=== PATIENT | female | born 1965 | race Caucasian/White ===

== ENCOUNTER 2017-06-20 11:03 | Observation (INO) | payer SELFPAY ==
[~2017-06-20] VITALS: Ht 165.1 cm; Wt 90.0 kg
[2017-06-20 11:26] LABS: HEMOGLOBIN 13.4 G/DL (11.9-15.5); MCH 29.1 PG (29.0-34.0); MCHC 33.5 G/DL (30.0-36.0); PLATELET COUNT 318 K/uL (156-360); RBC DIS.WIDTH-CV 13.5 % (11.8-14.6); RBC DIS.WIDTH-SD 43.2 % (39-53); WHITE BLOOD COUNT 8.6 K/uL (4.1-10.2)
[2017-06-20 11:39] LABS: CHLORIDE 104 mEq/L (99-109); POTASSIUM 3.8 mEq/L (3.7-5.4); SODIUM 142 mEq/L (136-147)
[2017-06-20 11:40] LABS: GLUCOSE 105 mg/dL (70-99)
[2017-06-20 11:44] LABS: CREATININE 0.8 mg/dL (0.6-1.3); GFR ESTIMATE (CALCULATED) > 59 mL/min/
[2017-06-20 11:45] LABS: UREA NITROGEN (BUN) 10 mg/dL (9-23)
[2017-06-20 11:47] LABS: TROP-I INTERPRETATION NEGATIVE; TROPONIN-I < 0.01 ng/mL (0.0-0.30)
[2017-06-20 15:12] LABS: ALBUMIN 4.1 g/dL (3.2-4.8)
[2017-06-20 15:13] LABS: D-DIMER ELISA < 150.00 ng/mLDDU (<230)
[2017-06-20 15:15] LABS: TOTAL PROTEIN 6.6 g/dL (6.4-8.3)
[2017-06-20 15:17] LABS: TOTAL BILIRUBIN 0.5 mg/dL (0.0-1.0)
[2017-06-20 15:18] LABS: ALKALINE PHOSPHATASE 47 IU/L (3-129)
[2017-06-20 15:20] LABS: AST (GOT) 21 IU/L (2-34); DIRECT BILIRUBIN 0.2 mg/dL (0.0-0.3)
[2017-06-20 15:21] LABS: ALT (GPT) 30 IU/L (3-49)
[2017-06-20] MEDS ORDERED: MULTI VITAMIN1 EACH PO (15:25)
[2017-06-20] MEDS ORDERED: LEVOTHYROXINE175 MCG PO (15:25)
[2017-06-20 16:48] LABS: THYROTROPIN (TSH) 2.5 MIU/L (0.4-5.5)
[2017-06-20 18:10] LABS: TROP-I INTERPRETATION NEGATIVE; TROPONIN-I 0.03 ng/mL (0.0-0.30)
[2017-06-20 20:23] VITALS: BP 113/75
[2017-06-21 00:35] VITALS: BP 128/58
[2017-06-21 00:56] LABS: TROP-I INTERPRETATION NEGATIVE; TROPONIN-I < 0.01 ng/mL (0.0-0.30)
[2017-06-21 03:52] VITALS: BP 108/66
[2017-06-21 05:12] LABS: HEMATOCRIT 36.5 % (36.0-46.0); HEMOGLOBIN 11.9 G/DL (11.9-15.5); MCH 28.6 PG (29.0-34.0); MCHC 32.6 G/DL (30.0-36.0); MCV 87.7 FL (83-99); PLATELET COUNT 281 K/uL (156-360); RBC DIS.WIDTH-CV 13.7 % (11.8-14.6); RBC DIS.WIDTH-SD 44.3 % (39-53); RED BLOOD COUNT 4.16 M/uL (3.80-5.20); WHITE BLOOD COUNT 8.9 K/uL (4.1-10.2)
[2017-06-21 06:03] LABS: CHLORIDE 101 MEQ/L (99-109); CREATININE 0.6 MG/DL (0.6-1.3); GFR ESTIMATE (CALCULATED) > 59 mL/min/; GLUCOSE 106 mg/dL (70-99); POTASSIUM 3.7 MEQ/L (3.7-5.4); SODIUM 139 MEQ/L (136-147); UREA NITROGEN (BUN) 9 mg/dL (9-23)
[2017-06-21 08:00] VITALS: BP 135/76
[2017-06-21] MEDS ORDERED: BUTALB-APAP-CA1 EACH PO (11:46)
[2017-06-21] MEDS ORDERED: ALPRAZOLAM0.25 M2 PO (11:46)
[2017-06-21] MEDS ORDERED: ASPIR 8181 M1 PO (11:46)
[2017-06-21] MEDS ORDERED: PEPCID20 MG PO (11:47)
[2017-06-21] MEDS ORDERED: ATORVASTATIN CA40 MG PO (11:54)
[2017-06-21 11:55] VITALS: BP 133/87
== END 2017-06-21 12:53 | disposition home or self-care (01) ==
LOC: EME 11:03 → 5WEST 14:07 → EDOF 14:07 → ENRESERV 14:08 → 5WEST 20:06
PROVIDERS: Nurse Practitioner Adult Health
DX: R07.9 Chest pain, unspecified (principal); R94.31 Abnormal electrocardiogram [ECG] [EKG]; I10 Essential (primary) hypertension; F41.9 Anxiety disorder, unspecified; G43.909 Migraine, unspecified, not intractable, without status migrainosus; E78.5 Hyperlipidemia, unspecified; Z82.49 Family history of ischemic heart disease and other diseases of the circulatory system; E03.9 Hypothyroidism, unspecified; R10.13 Epigastric pain; Z88.2 Allergy status to sulfonamides; Z88.5 Allergy status to narcotic agent; Z88.1 Allergy status to other antibiotic agents
CPT/HCPCS: 71046; 80048; 80076; 84443; 84484; 85027; 85379; 93005; 99281; 99285; G0378; J1885